=== PATIENT | female | born 1965 | race Two or more races ===

== ENCOUNTER 2021-02-26 04:38 | Day surgery (SDC) | payer OTHER ==
[2021-02-21 16:49] VITALS: BMI 28.5
[2021-02-26 10:17] VITALS: TEMP 97.7
[2021-02-26 11:16] VITALS: BP 116/68; PULSE 79
== END 2021-02-26 11:16 | disposition home or self-care (01) ==
LOC: JASU-ENDO 04:38
PROVIDERS: ATTEND Internal Medicine Gastroenterology
PROC: 0DBL8ZX Excision of Transverse Colon, Via Natural or Artificial Opening Endoscopic, Diagnostic (ICD-10-PCS; principal; 2021-02-26 09:30)
DX: Z12.11 Encounter for screening for malignant neoplasm of colon (principal); D12.3 Benign neoplasm of transverse colon
CPT/HCPCS: 88305-TC

== ENCOUNTER 2025-01-17 14:47 | Emergency (ER) | payer OTHER, BC ==
[2025-01-17 15:00] VITALS: BP 139/76; PULSE 85; RESP 15; TEMP 97.5; BMI 28.6
[2025-01-17] MEDS ORDERED: ACETAMINOPHEN 500 MG TABLET (FP) ONE (17:58)
[2025-01-17] MEDS: ACETAMINOPHEN 500 MG TABLET (FP) PO ONE (18:00)
[2025-01-17] MEDS ORDERED: IBUPROFEN 400 MG TABLET (FP) PO ONE (18:01)
[2025-01-17] MEDS: IBUPROFEN 600 MG TABLET (FP) PO ONE (18:02)
== END 2025-01-17 18:30 | disposition home or self-care (01) ==
LOC: FER 14:47
DX: S62.102A Fracture of unspecified carpal bone, left wrist, initial encounter for closed fracture (principal); S00.83XA Contusion of other part of head, initial encounter; S60.411A Abrasion of left index finger, initial encounter; W01.198A Fall on same level from slipping, tripping and stumbling with subsequent striking against other object, initial encounter; Y92.480 Sidewalk as the place of occurrence of the external cause
CPT/HCPCS: 70486-TC; 73110-TC-LT-FY; 99284-25